=== PATIENT | female | born 1975 | race Caucasian/White ===

== ENCOUNTER → 2020-02-01 | Emergency (ER) | payer SELFPAY ==
[~2020-02-01] VITALS: Ht 157.5 cm; Wt 52.2 kg
[~2020-02-01] MED LIST: IOPAMIDOL 370 MG/ML 200 ML INFUS..BTL INJ ONE; KETOROLAC TROMETHAMINE 30 MG/ML VIAL IM NR; LEVOTHYROXINE100 MC1 PO; ONDANSETRON HCL INJ 2MG/ML 2ML 2 MG/ML VIAL IM NR; SODIUM CHLORIDE 0.9% 1000ML 1,000 ML IV STA; SODIUM CHLORIDE 0.9% 50ML 50 ML ONE
--- NOTE | 2020-02-01 08:14 | Emergency Department Note ---
History of Present Illnes History of Present Illness Chief Complaint: Abdominal Complaints History of Present Illness This is a 44 year old female with 4 day h/o of RLQ pain . Historian: Patient Arrival Mode: Car Onset (how long ago): day(s) (4) Location: RLQ Quality: burning Radiation: Reports abdomen Severity: moderate Onset quality: gradual Duration (how long): day(s) (4) Timing of current episode: constant Progression: worsening Chronicity: new Relieving factors: none Associated symptoms: Reports nausea/vomiting; Denies fever/chills Treatments prior to arrival: none Past Medical/Family History Physician Review I have reviewed the patient's past medical and family history. Any updates have been documented here. Past Medical History Recent Fever: No Clinical Suspicion of Infectio: No New/Unexplained Change in Ment: No Past Medical History: None, Kidney Stones Other Medical History: MITRAL VALVE PROLAPSE, KIDNEY STONES Past Surgical History: Tubal Ligation Other Surgery: RENAL STENT Social History Smoking Cessation: Current some day smoker Counseling Performed: Yes Alcohol Use: Social Any Illegal Drug Use: Yes (mJ) Other Last Tetanus: UTD Review of Systems Review of Systems Constitutional: Reports no symptoms EENTM: Reports no symptoms Cardiovascular: Reports no symptoms Respiratory: Reports no symptoms Gastrointestinal: Reports abdominal pain, Reports nausea Genitourinary: Reports no symptoms Musculoskeletal: Reports no symptoms Integumentary: Reports no symptoms Neurological: Reports no symptoms Psychological: Reports no symptoms Endocrine: Reports no symptoms Hematological/Lymphatic: Reports no symptoms Physical Exam Related Data Allergies: Coded Allergies: No Known Allergies (Unverified , 07/07/16) Triage Vital Signs Vital Signs Date Time Temp Pulse Resp B/P (MAP) Pulse Ox O2 Delivery O2 Flow Rate FiO2 02/01/20 08:04 97.8 87 16 130/76 99 Vital signs reviewed: Yes Physical Exam CONSTITUTIONAL Constitutional: Present well-developed, Present well-nourished HENT HENT: Present normocephalic, Present atraumatic, Present oropharynx clear/moist, Present nose normal HENT L/R: Present left ext ear normal, Present right ext ear normal EYES Eyes: Reports PERRL, Reports conjunctivae normal NECK Neck: Present ROM normal PULMONARY Pulmonary: Present effort normal, Present breath sounds normal CARDIOVASCULAR Cardiovascular: Present regular rhythm, Present heart sounds normal, Present capillary refill normal, Present normal rate GASTROINTESTINAL Abdominal: Present soft, Present tender (RLQ) GENITOURINARY Genitourinary: Present exam deferred SKIN Skin: Present warm, Present dry MUSCULOSKELETAL Musculoskeletal: Present ROM normal NEUROLOGICAL Neurological: Present alert, Present oriented x 3, Present no gross motor or sensory deficits PSYCHOLOGICAL Psychological: Present mood/affect normal, Present judgement normal Results Laboratory Lab results reviewed: Yes Laboratory comments WBC : 11.31 Lipase : 435 UA : (+) bacteria and trichomonas UDS : suspicious Imaging Imaging results reviewed: Yes Impressions [place] [id number] Patient Name: FREDO MAC MR #: [id number] : 1975 Age/Sex: 44/F Req #: [id number] Adm Physician: Ordered by: ROSARIO LAINEZ DO Report #: [id number] Location: ER Room/Bed: Procedure: [id number] CT/CT ABDOMEN/PELVIS W Exam Date: 02/01/20 Exam Time: 1010 REPORT STATUS: Signed EXAM: CT Abdomen and Pelvis WITH contrast INDICATION: RLQ pain COMPARISON: None. TECHNIQUE: Abdomen and pelvis were scanned utilizing a multidetector helical scanner from the lung base to the pubic symphysis after administration of IV contrast. Coronal and sagittal reformations were obtained. Dose modulation, iterative reconstruction, and/or weight based adjustment of the mA/kV was utilized to reduce the radiation dose to as low as reasonably achievable. Routine protocol was performed. Scan was performed when during portal venous phase. IV CONTRAST: 150 mL of Omnipaque 300 ORAL CONTRAST: Water COMPLICATIONS: None RADIATION DOSE: Total DLP: 165.61 mGy-cm Estimated effective dose: (DLP x 0.015 x size factor) mSv CTDIvol has been reviewed. It is below the limits set by the Radiation Protocol Committee (RPC). FINDINGS: LINES and TUBES: None. LOWER THORAX: There are bilateral dependent bibasilar atelectasis. HEPATOBILIARY: No focal hepatic lesions. No biliary ductal dilation. GALLBLADDER: No radio-opaque stones or sludge. No gallbladder wall thickening. SPLEEN: No splenomegaly. No focal splenic lesion. PANCREAS: No focal masses or ductal dilatation. ADRENALS: There is left adrenal thickening, nonspecific. The right adrenal gland is normal. KIDNEYS/URETERS: There is severe right-sided hydroureteronephrosis likely secondary to mass effect by the below mentioned pelvic mass. There is decreased cortical enhancement of the right kidney. There is a right renal subcentimeter cortical low-density lesion (series 2, image 34) too small to characterize. No stones. There is a slight prominence of the left renal pelvis. GI TRACT/PELVIC ORGANS: There is a 4.6 x 4.8 cm mass at the rectovaginal pouch which is difficult to assess on this CT arising from the cervix or rectum but appears to arise from cervix. Additionally is also irregularity of the lower vagina. LYMPH NODES: 0.9 cm right periaortic node (series 2, image 36) VESSELS: No aortic aneurysm or dissection. There is a questionable filling defect in the right portal vein (series 2, image 21) and decreased attenuation of the main portal vein likely due to artifact. PERITONEUM / RETROPERITONEUM: Small amount of free fluid in the pelvis. BONES: Unremarkable. SOFT TISSUES: Unremarkable. IMPRESSION: 1. A 4.8 cm mass at the rectovaginal pouch which is difficult to assess on this CT arising from the cervix or rectum but appears to arise from cervix. Additionally there is also irregularity of the lower vagina. This is indeterminate and recommend further evaluation with MR pelvis 3 heidi. 2. Slightly prominent right paraortic node could be reactive or neoplastic. 3. Severe right-sided hydroureteronephrosis likely secondary to mass effect by the pelvic mass. There is associated decreased cortical enhancement of the right kidney. Signed by: Fermin Kerr MD on 02/01/2020 11:10 AM Dictated By: FERMIN KERR MD [id number] Transcribed By: AURELIANO on 02/01/20 1110 COPY TO: LAINEZ,ROSARIO DO~ Assessment & Plan Medical Decision Making MDM 44 yof with abdominal pain. CBC, CMP, UA and CTS ordered to r/o appendicitis, diverticulitis, UTI, kidney stone, perforated viscus, obstruction, ischemia, and biliary pathology Reassessment Reassessment Security called to bedside after patient became verbally belligerent towards staff. Patient requests to leave hospital without fulll evaluation. I explained to the patient that CT results were pending. At the time tentative diagnosis was UTI and trichomonas. Patient given discharge instructions such. Patient with non-surgical abdomen and agreed ot discharge to home. CTS reviewed with findings concerning for cervical malignancy. Attempted to contact patient by phone at 11:30 on 02/01/2020 and left voice mail Successful contacted patient and discussed at length CT findings. Patient instructed to f/u with [facility] regarding cervical lesion. I explained to patient that she may be able to slat pickler a copy of CT images on disk for personal record. Patient acknowledge comprehension of instructions and importance of f/u Assessment & Plan Final Impression: (1) Pelvic mass in female (2) UTI (urinary tract infection) (3) Trichomonas infection Depart Disposition: HOME, SELF-CARE Last Vital Signs Date Time Temp Pulse Resp B/P (MAP) Pulse Ox O2 Delivery O2 Flow Rate FiO2 02/01/20 08:04 97.8 87 16 130/76 99 Home Meds Reported Medications Levothyroxine Sodium (LEVOTHYROXINE SODIUM) 100 Mcg Vial, 100 MCG PO DAILY, VIAL 07/07/16 Medications in the ED Sodium Chloride 1,000 ml @ 0 mls/hr Q0M STAT IV Last administered on 02/01/20at 09:10; Admin Dose 999 MLS/HR; Start 02/01/20 at 08:10; Stop 02/01/20 at 08:14; Status DC Ondansetron HCl 4 mg ONCE IM Last administered on 02/01/20at 09:10; Admin Dose 4 MG; Start 02/01/20 at 08:30; Stop 02/01/20 at 11:54; Status DC Ketorolac Tromethamine 30 mg ONCE IM Last administered on 02/01/20at 09:10; Admin Dose 30 MG; Start 02/01/20 at 08:30; Stop 02/01/20 at 11:54; Status DC Sodium Chloride 50 ml @ ud STK-MED ONCE .ROUTE ; Start 02/01/20 at 10:41; Stop 02/01/20 at 10:35; Status DC Iopamidol 74,000 mg STK-MED ONCE INJ ; Start 02/01/20 at 10:41; Stop 02/01/20 at 10:35; Status DC ROSARIO LAINEZ DO Feb 01, 2020 08:14
[2020-02-01 08:34] LABS: BASOPHILS # (AUTO) 0.1 (0.0-0.1); BASOPHILS % 0.5 % (0.0-1.0); EOSINOPHILS # (AUTO) 0.3 (0.0-0.4); EOSINOPHILS % 2.8 % (0.0-6.0); HEMATOCRIT 43.3 % (34.2-44.1); HEMOGLOBIN 13.9 g/dL (12.0-16.0); LYMPHOCYTES # (AUTO) 1.9 (1.0-3.2); LYMPHOCYTES % 17.1 % (18.0-39.1); MEAN CORPUSCULAR HEMOGLOBIN 29.6 pg (28-32); MEAN CORPUSCULAR HGB CONC 32.1 g/dL (31-35); MEAN CORPUSCULAR VOLUME 92.3 fL (81-99); MONOCYTES # (AUTO) 1.1 (0.2-0.8); MONOCYTES % 10.1 % (4.4-11.3); NEUTROPHILS # (AUTO) 7.8 (2.1-6.9); PLATELET COUNT 367 x10e3/uL (140-360); RED BLOOD COUNT 4.69 x10e6/uL (3.6-5.1); RED CELL DISTRIBUTION WIDTH 13.9 % (11.7-14.4)
[2020-02-01 08:51] LABS: BILIRUBIN,URINE NEGATIVE (NEGATIVE); CLARITY,URINE SL CLOUDY (CLEAR); COLOR,URINE YELLOW (YELLOW); KETONES,URINE NEGATIVE (NEGATIVE); LEUKOCYTE ESTERASE ,URINE LARGE (NEGATIVE); NITRITE,URINE POSITIVE (NEGATIVE); PROTEIN,URINE DIPSTICK NEGATIVE (NEGATIVE); URINE UROBILINOGEN 0.2 mg/dL (0.2 - 1)
[2020-02-01 08:52] LABS: AMPHETAMINES SCREEN,URINE POSITIVE (NEGATIVE); BENZODIAZEPINES SCREEN,URINE NEGATIVE (NEGATIVE); PHENCYCLIDINE SCREEN,URINE NEGATIVE (NEGATIVE)
[2020-02-01 09:03] LABS: ALANINE AMINOTRANSFERASE 16 IU/L (0-55); ALBUMIN 3.6 g/dL (3.5-5.0); ALBUMIN/GLOBULIN RATIO 1.2 (0.8-2.0); ALKALINE PHOSPHATASE 62 IU/L (40-150); ANION GAP 9.2 mmol/L (8-16); BLOOD UREA NITROGEN 12 mg/dL (7-26); BUN/CREATININE RATIO 15 (6-25); CALCIUM 8.8 mg/dL (8.4-10.2); CARBON DIOXIDE 26 mmol/L (22-29); CHLORIDE 107 mmol/L (98-107); CREATININE, SERUM 0.82 mg/dL (0.57-1.11); EST GLOMERULAR FILTRATION RATE > 60 ML/MIN (60-); GLUCOSE 93 mg/dL (74-118); LIPASE 435 U/L (8-78); POTASSIUM 4.2 mmol/L (3.5-5.1); SODIUM 138 mmol/L (136-145)
[2020-02-01 09:10] LABS: BACTERIA,URINE MODERATE /HPF; EPITHELIAL CELLS,URINE FEW /LPF; WBC,URINE (MAN) >50 /HPF (0-5)
[2020-02-01 09:11] LABS: RBC,URINE 0-5 /HPF (0-5); TRICHOMONAS,URINE MODERATE
--- NOTE | 2020-02-01 11:14 | Diagnostic Imaging Report ---
EXAM: CT Abdomen and Pelvis WITH contrast INDICATION: RLQ pain COMPARISON: None. TECHNIQUE: Abdomen and pelvis were scanned utilizing a multidetector helical scanner from the lung base to the pubic symphysis after administration of IV contrast. Coronal and sagittal reformations were obtained. Dose modulation, iterative reconstruction, and/or weight based adjustment of the mA/kV was utilized to reduce the radiation dose to as low as reasonably achievable. Routine protocol was performed. Scan was performed when during portal venous phase. IV CONTRAST: 150 mL of Omnipaque 300 ORAL CONTRAST: Water COMPLICATIONS: None RADIATION DOSE: Total DLP: 165.61 mGy-cm Estimated effective dose: (DLP x 0.015 x size factor) mSv CTDIvol has been reviewed. It is below the limits set by the Radiation Protocol Committee (RPC). FINDINGS: LINES and TUBES: None. LOWER THORAX: There are bilateral dependent bibasilar atelectasis. HEPATOBILIARY: No focal hepatic lesions. No biliary ductal dilation. GALLBLADDER: No radio-opaque stones or sludge. No gallbladder wall thickening. SPLEEN: No splenomegaly. No focal splenic lesion. PANCREAS: No focal masses or ductal dilatation. ADRENALS: There is left adrenal thickening, nonspecific. The right adrenal gland is normal. KIDNEYS/URETERS: There is severe right-sided hydroureteronephrosis likely secondary to mass effect by the below mentioned pelvic mass. There is decreased cortical enhancement of the right kidney. There is a right renal subcentimeter cortical low-density lesion (series 2, image 34) too small to characterize. No stones. There is a slight prominence of the left renal pelvis. GI TRACT/PELVIC ORGANS: There is a 4.6 x 4.8 cm mass at the rectovaginal pouch which is difficult to assess on this CT arising from the cervix or rectum but appears to arise from cervix. Additionally is also irregularity of the lower vagina. LYMPH NODES: 0.9 cm right periaortic node (series 2, image 36) VESSELS: No aortic aneurysm or dissection. There is a questionable filling defect in the right portal vein (series 2, image 21) and decreased attenuation of the main portal vein likely due to artifact. PERITONEUM / RETROPERITONEUM: Small amount of free fluid in the pelvis. BONES: Unremarkable. SOFT TISSUES: Unremarkable. IMPRESSION: 1. A 4.8 cm mass at the rectovaginal pouch which is difficult to assess on this CT arising from the cervix or rectum but appears to arise from cervix. Additionally there is also irregularity of the lower vagina. This is indeterminate and recommend further evaluation with MR pelvis 3 heidi. 2. Slightly prominent right paraortic node could be reactive or neoplastic. 3. Severe right-sided hydroureteronephrosis likely secondary to mass effect by the pelvic mass. There is associated decreased cortical enhancement of the right kidney. Signed by: Fermin Zavala MD on 02/01/2020 11:10 AM
== END | disposition home or self-care (01) ==
LOC: ER 07:59
DX: R10.31 Right lower quadrant pain (principal); R11.2 Nausea with vomiting, unspecified; R19.00 Intra-abdominal and pelvic swelling, mass and lump, unspecified site; A59.9 Trichomoniasis, unspecified
CPT/HCPCS: 36415; 74177; 80053; 80307; 81001; 83690; 85025; 99284; J1885; J2405; J7030; Q9967